=== PATIENT | male | born 1980 | race Hispanic/Latino ===

== ENCOUNTER 2017-01-12 07:16 | Emergency (ER) | payer SELFPAY ==
[~2017-01-12] VITALS: Ht 180.3 cm; Wt 100.0 kg
[~2017-01-12 07:16] MED LIST: AMOXICILLIN500 MG OR; AMOXICILLIN500 MG PO; AUGMENTIN500TAB PO; BENADRYL25 M1 PO; BENTYL20 MG OR; CIPRO500 MG OR; CORTISPORIN OTI10 ML AD; ERY-TAB333 MG OR; FLAGYL500 MG OR; FLEXERIL PO; LORTAB 5 OR; LORTAB5 OR; MEDDOSEPAK PO; NAPROSYN500 MG PO; NO; NO CURRENT MEDS; NYQUI1 OR; PRILOSEC OTC20 MG OR; PRILOSEC20 MG/CAP PO; ROBITUSSIN AC10 ML PO; ZOFRAN ODT4 MG OR
[2017-01-12 07:56] LABS: HEMATOCRIT 43.2 % (39.0-50.0); HEMOGLOBIN 14.3 g/dl (14.0-18.0); IMMATURE GRANULOCYTES 0.3 % (0.0-1.0); MEAN CELL VOLUME 92.7 fL CALC (80.0-100.0); MEAN CORPUSCULAR HGB 30.7 pG CALC (26.0-32.0); MEAN CORPUSCULAR HGB CONC 33.1 g/L CALC (32.0-36.0); NEUT# 4.33 thou/uL (1.82-7.42); RED BLOOD COUNT 4.66 mill/uL (4.70-6.10); RED CELL DISTRI WIDTH 13.2 % (11.5-15.5)
[2017-01-12 08:12] LABS: ALBUMIN 4.1 g/dL (3.2-5.0); ALKALINE PHOSPHATASE 98 u/l (38-126); ANION GAP 13 (6-22 (CALC)); BILIRUBIN, TOTAL 0.5 mg/dL (0.0-1.4); BUN 8 mg/dL (9-20); BUN/CREATININE RATIO 11 (12-20 (CALC)); CALCIUM 8.9 mg/dL (8.4-10.2); CARBON DIOXIDE 28 mmol/l (22-30); CHLORIDE 103 mmol/l (95-108); CREATININE 0.8 mg/dL (0.7-1.3); GFR > 60 ML/MIN (>=60 (CALC)); GFR FOR AFR.AMER. > 60 ML/MIN (>=60 (CALC)); GLUCOSE 101 mg/dL (75-110); POTASSIUM 3.9 mmol/l (3.5-5.1); SGOT/AST 24 u/l (17-59); SGPT/ALT 31 u/l (21-72); SODIUM 141 mmol/l (137-146); TOTAL PROTEIN 7.2 g/dL (6.3-8.2)
[2017-01-12 08:24] LABS: MYOGLOBIN 32 ng/mL (0 - 121)
[2017-01-12 08:40] LABS: URINE BILIRUBIN - DIPSTICK NEGATIVE (NEGATIVE); URINE BLOOD DIPSTICK TRACE-INTACT (NEGATIVE); URINE CLARITY CLEAR; URINE COLOR YELLOW; URINE GLUCOSE - DIPSTICK NEGATIVE (NEGATIVE); URINE KETONE NEGATIVE (NEGATIVE); URINE LEUK ESTERASE NEGATIVE (NEGATIVE); URINE NITRITE - DIPSTICK NEGATIVE (Negative); URINE PROTEIN - DIPSTICK NEGATIVE (NEG-TRACE); URINE SPECIFIC GRAVITY 1.025
[2017-01-12 08:41] LABS: BARBITURATES NEGATIVE (NEGATIVE); COCAINE NEGATIVE (NEGATIVE); METHADONE NEGATIVE (NEGATIVE); OXCYCODONE NEGATIVE (NEGATIVE); TETRAHYDROCANNABIONOL NEGATIVE (NEGATIVE); TRICYLIC ANTIDEPRESSANTS NEGATIVE (NEGATIVE)
[2017-01-12 09:33] VITALS: BP 148/96
== END 2017-01-12 09:34 | disposition home or self-care (01) | DRG 312 ==
LOC: ED 07:16
PROVIDERS: Emergency Medicine
DX: R55 Syncope and collapse (principal); R00.1 Bradycardia, unspecified; F17.200 Nicotine dependence, unspecified, uncomplicated

== ENCOUNTER 2019-09-24 16:21 | Emergency (ER) | payer SELFPAY ==
[~2019-09-24] VITALS: Ht 180.3 cm; Wt 102.0 kg
[2019-09-24] MEDS ORDERED: AMOXICILLIN875 MG PO (20:05)
[2019-09-24 20:10] VITALS: BP 131/74
== END 2019-09-24 20:10 | disposition home or self-care (01) | DRG 153 ==
LOC: ED 16:21
DX: J02.0 Streptococcal pharyngitis (principal)

== ENCOUNTER 2019-11-09 05:47 | Observation (INO) | payer MEDICAID ==
[~2019-11-09] VITALS: Ht 180.3 cm; Wt 90.0 kg
[~2019-11-09 05:47] MED LIST changes: +AMOXICILLIN875 MG PO
--- NOTE | 2019-11-09 05:48 | NUR ---
TO TX ROOM VIA W/C
--- NOTE | 2019-11-09 05:49 | NUR ---
PT. WITH C/O TKING A FRIENDS AMMOXICILLIN FOR A SORE THROAT. PT. WALKED INTO ER LOBBY, AND SAT HIMSELF DOWN ON THE FLOOR. SKIN WARM AND DRY TO TOUCH, COLOR WNL, RESP. EVEN AND UNLABORED. BILATERAL LUNG SANCHEZ ARE WHEEZES. MD AT BEDSIDE.
[2019-11-09 06:30] LABS: IMMATURE GRANULOCYTES 0.4 % (0.0-5.0); MEAN CELL VOLUME 92.6 fL CALC (80.0-100.0); MEAN CORPUSCULAR HGB 30.2 pG CALC (26.0-32.0); MEAN CORPUSCULAR HGB CONC 32.6 g/L CALC (32.0-36.0); NEUT# 6.84 thou/uL (1.82-7.42); RED BLOOD COUNT 4.97 mill/uL (4.70-6.10); RED CELL DISTRI WIDTH 12.7 % (11.5-15.5)
--- NOTE | 2019-11-09 06:39 | NUR ---
IVF, IV BENADRYL, IV SOLU-MEDROL GIVEN PER MD ORDER.
[2019-11-09 06:41] LABS: ANION GAP 16 (6-22 (CALC)); BUN 18 mg/dL (9-20); BUN/CREATININE RATIO 20 (12-20 (CALC)); CHLORIDE 102 mmol/l (95-108); CREATININE 0.9 mg/dL (0.7-1.3); GFR > 60 ML/MIN (>=60 (CALC)); GFR FOR AFR.AMER. > 60 ML/MIN (>=60 (CALC)); POTASSIUM 3.7 mmol/l (3.5-5.1); SODIUM 136 mmol/l (137-146)
--- NOTE | 2019-11-09 06:48 | NUR ---
PT. BP 91/60 MD AWARE.
[2019-11-09 06:49] LABS: CARBON DIOXIDE 22 mmol/l (22-30)
--- NOTE | 2019-11-09 06:52 | NUR ---
IM EPI GIVEN PER MD ORDER.
--- NOTE | 2019-11-09 07:01 | NUR ---
REPORT TO KATHIE ABRAHAM.
--- NOTE | 2019-11-09 07:16 | NUR ---
PT SKIN FLUSHED AND WARM TO THE TOUCH, PT STATES HE FEELS LIKE HIS BODY IS SHUTTINNG DOWN. BILATERAL LS CLEAR, NO STRIDOR NOTED. PT DENEIS ANY SOB OF TIGHTNESS IN THROAT. 0.3 MG OF EPI GIVEN TO THE RIGHT UPPER ARM. DRY COUGH NOTED. PT REPORTS COUGH/CONGESTION FOR SEVERAL DAYS.
--- NOTE | 2019-11-09 07:40 | NUR ---
PT DENIES ANY SOB OR TIGHNESS IN THROAT. PER MD TO HOLD EPI DRIP AT THIS TIME. 2ND IV SITE INITIATED.
--- NOTE | 2019-11-09 08:00 | NUR ---
PT RESTING IN STRETCHER IN NAD AND DENIES ANY SOB OR CHEST TIGHTNESS. SKIN WARM, PINK AND DRY. CALL [facility] WITHIN REACH.
--- NOTE | 2019-11-09 08:45 | NUR ---
PT AWARE OF PLAN FOR TRANSPORT TO ICU. PT RESTING IN STRETCHER IN NAD, TALKING WITH FAMILY. BILATERAL LS CLEAR. CALL [facility] WTIHIN REACH.
--- NOTE | 2019-11-09 09:00 | NUR ---
PT REPORT CALLED TO [facility]. WILL TRANSPORT IN 10 MINS.
--- NOTE | 2019-11-09 09:20 | NUR ---
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 CARE RELINQUISHED TO [facility].
[2019-11-09 09:25] VITALS: BP 132/84
--- NOTE | 2019-11-09 09:25 | NUR ---
PT [facility] TO ICU [id number] AMOX[facility].& STREP A PT ABLE TO STAND AND TRANSFER SELF FROM STRETCHER TO BED, PT A&OX4, ABLE TO MAKE NEEDS KNOWN. PT DENIES CP, SOB OR DISTRESS AT THIS TIME, RESPIRATIONS EVEN/UNLABORED, LS CLEAR THROUGHOUT, SA02@98%RA, ABDOMEN NORMAL, NON-TENDER, BSX4 ACTIVE, LBM 1-30-20. PT ORIENTED TO UNIT, CALL LIGHT AND ROOM. CALL LIGHT IN REACH. WILL MONITOR.
[2019-11-09 10:00] VITALS: BP 132/75
--- NOTE | 2019-11-09 10:00 | NUR ---
FAMILY ARRIVED AT BEDSIDE FOR VISIT.
--- NOTE | 2019-11-09 11:30 | NUR ---
DIETARY ON UNIT, LUNCH TRAY SET UP.
[2019-11-09 12:00] VITALS: BP 127/76
--- NOTE | 2019-11-09 12:00 | NUR ---
PT ASSIST TO [facility]. STEADY GAIT NOTED.
[2019-11-09 14:00] VITALS: BP 137/79
--- NOTE | 2019-11-09 14:00 | NUR ---
PT RESTING IN BED, RESPIRATIONS EVEN/UNLABORED, PT DENIES SOB, LS CLEAR THROUGHOUT. CALL LIGHT IN REACH. WILL MONITOR.
[2019-11-09] MEDS ORDERED: MEDDOSEPAK PO (15:55)
[2019-11-09] MEDS ORDERED: ZITHROMAX250 MG PO (15:55)
[2019-11-09 16:00] VITALS: BP 137/79
--- NOTE | 2019-11-09 16:00 | NUR ---
FAMILY ARRIVED AT BEDSIDE.
--- NOTE | 2019-11-09 16:30 | NUR ---
DR. WESTON AT [facility] FOR ASSESSMENT AND TO DISCUSS PLAN OF CARE, NEW ORDERS RECIEVED. PRESCRIPTIONS SENT TO [facility] IN [place].
--- NOTE | 2019-11-09 17:20 | NUR ---
IV siteS discontinued, cath intact. No edema , no redness, voices no discomfort.
--- NOTE | 2019-11-09 17:46 | NUR ---
Discharge instructions given. Patient verbalizes understanding of same. Discharged in stable condition via Ambulatory to Home with family. All belongings sent with pt.
== END 2019-11-09 17:46 | disposition home or self-care (01) ==
LOC: ED 05:47 → ED-I 07:12 → ED 07:24 → ICU 07:25
PROVIDERS: Family Medicine; ADMIT Internal Medicine; ATTEND Internal Medicine
DX: T36.0X1A Poisoning by penicillins, accidental (unintentional), initial encounter (principal); T78.2XXA Anaphylactic shock, unspecified, initial encounter; J02.0 Streptococcal pharyngitis

== ENCOUNTER 2019-12-20 07:28 | Emergency (ER) | payer SELFPAY ==
[~2019-12-20 07:28] MED LIST changes: +ZITHROMAX250 MG PO
[2019-12-20] MEDS ORDERED: ZPAK PO (07:48)
[2019-12-20 07:53] VITALS: BP 134/77
== END 2019-12-20 08:00 | disposition home or self-care (01) | DRG 153 ==
LOC: ED 07:28
DX: J02.9 Acute pharyngitis, unspecified (principal)

== ENCOUNTER 2022-07-28 18:54 | Emergency (ER) | payer OTHER ==
[~2022-07-28] VITALS: Ht 182.9 cm; Wt 111.0 kg
[~2022-07-28 18:54] MED LIST changes: +ZPAK PO
[2022-07-28] MEDS ORDERED: NAPROXEN500 MG PO (20:12)
[2022-07-28] MEDS ORDERED: CYCLOBENZAPRINE10 MG PO (20:12)
[2022-07-28] MEDS ORDERED: PREDNISONE10 MG PO (20:18)
[2022-07-28 20:38] VITALS: BP 154/88
== END 2022-07-28 20:40 | disposition home or self-care (01) ==
LOC: ED 18:54
DX: S16.1XXA Strain of muscle, fascia and tendon at neck level, initial encounter (principal); X50.0XXA Overexertion from strenuous movement or load, initial encounter; Y93.89 Activity, other specified

== ENCOUNTER 2022-09-13 07:06 | Emergency (ER) | payer OTHER ==
[~2022-09-13] VITALS: Ht 182.9 cm; Wt 111.1 kg
[~2022-09-13 07:06] MED LIST changes: +CYCLOBENZAPRINE10 MG PO; +NAPROXEN500 MG PO; +PREDNISONE10 MG PO
[2022-09-13 07:23] VITALS: BP 126/81
[2022-09-13 07:30] VITALS: BP 130/89
[2022-09-13 08:01] VITALS: BP 141/94
[2022-09-13 08:15] VITALS: BP 141/94
== END 2022-09-13 08:33 | disposition home or self-care (01) ==
LOC: ED 07:06
DX: M25.511 Pain in right shoulder (principal)

== ENCOUNTER 2023-02-26 12:20 | Emergency (ER) | payer OTHER ==
[2023-02-26] VITALS (11 sets, daily range): BP systolic 91–129; BP diastolic 56–82
[~2023-02-26] VITALS: Ht 182.9 cm; Wt 106.5 kg
[2023-02-26] MEDS ORDERED: NORVASC PO (12:29)
[2023-02-26] MEDS ORDERED: COZAAR100 MG PO (12:30)
[2023-02-26 12:47] LABS: BASO% 0.3 % (0-3); EOS% 1.4 % (0-8); HEMATOCRIT 40.2 % (39.0-50.0); HEMOGLOBIN 13.5 g/dl (14.0-18.0); IMMATURE GRANULOCYTES 0.2 % (0.0-5.0); LYMPH% 20.3 % (15-41); MEAN CELL VOLUME 91.8 fL CALC (80.0-100.0); MEAN CORPUSCULAR HGB 30.8 pG CALC (26.0-32.0); MEAN CORPUSCULAR HGB CONC 33.6 g/dL CAL (32.0-36.0); MONO% 7.9 % (2-13); NEUT# 6.94 thou/uL (1.82-7.42); NEUT% 69.9 % (42-76); RED BLOOD COUNT 4.38 mill/uL (4.70-6.10); RED CELL DISTRI WIDTH 11.7 % (11.5-15.5)
[2023-02-26 12:58] LABS: ALBUMIN 4.4 g/dL (3.2-5.0); ALKALINE PHOSPHATASE 135 u/l (38-126); ANION GAP 15 (6-22 (CALC)); BILIRUBIN, TOTAL 0.4 mg/dL (0.2-1.3); BUN 30 mg/dL (9-20); BUN/CREATININE RATIO 24 (12-20 (CALC)); CARBON DIOXIDE 26 mmol/l (22-30); CHLORIDE 97 mmol/l (95-108); CREATININE 1.2 mg/dL (0.7-1.3); GFR FOR AFR.AMER. > 60 ML/MIN (>=60 (CALC)); GFR OTHER RACES > 60 ML/MIN (>=60 (CALC)); POTASSIUM 3.4 mmol/l (3.5-5.1); SODIUM 135 mmol/l (137-146); TOTAL PROTEIN 7.8 g/dL (6.3-8.2)
[2023-02-26 12:59] LABS: SGOT/AST 44 u/l (17-59)
[2023-02-26] MEDS ORDERED: MOTRIN400 MG/TAB PO (14:26)
== END 2023-02-26 14:40 | disposition home or self-care (01) ==
LOC: ED 12:20
PROVIDERS: Family Medicine
DX: R52 Pain, unspecified (principal); R05.9 Cough, unspecified; I10 Essential (primary) hypertension; E66.9 Obesity, unspecified; Z20.822 Contact with and (suspected) exposure to COVID-19